=== PATIENT | male | born 1950 | race Caucasian/White ===

== ENCOUNTER 2016-11-12 09:55 | Observation (INO) | payer MEDICARE, MEDICAID ==
[2016-11-12] MEDS ORDERED: ONDANSETRON HCL/PF 2 MG/ML VIAL IV ONE (10:35)
[2016-11-12] MEDS ORDERED: KETOROLAC TROMETHAMINE 30 MG/ML VIAL IV ONE (10:40)
[2016-11-12] MEDS ORDERED: NORMAL SALINE 1,000 ML IV ONE ×2 (10:40→12:11)
--- NOTE | 2016-11-12 10:46 | ERNOTE ---
Abdominal HPI - Narrative Date of Service: 11/12/16 - General Chief Complaint: Abdominal Pain Time Seen by Provider: 11/12/16 10:35 Source: patient Exam Limitations: no limitations - Immun/Allergies/Home Medications Immunizatons: IMMUNIZATION HX Immunizations Up to Date Yes History of Influenza Vaccine No Hx Pneumococcal Vaccination Yes Allergies/Adverse Reactions: Allergies trazodone Adverse Reaction (Mild, Verified 05/02/16 11:14) Vomiting Home Medications: HOME MEDICATIONS Paroxetine HCl [Paxil] 40 mg PO DAILY 07/03/13 [Last Taken Unknown] Ascorbic Acid [Vitamin C] 250 mg PO DAILY 05/09/15 [Last Taken Unknown] Nitroglycerin 0.4 mg SL Q5MX3 PRN 05/09/15 [Last Taken Unknown] amLODIPine BESYLATE [Norvasc] 10 mg PO DAILY 05/09/15 [Last Taken Unknown] Carvedilol [Coreg] 12.5 mg PO BID #60 tablet 05/10/15 [Last Taken Unknown] Hydrochlorothiazide [Hydrodiuril] 25 mg PO DAILY@1100 #30 tablet 05/10/15 [Last Taken Unknown] ALPRAZolam [Xanax] 0.5 mg PO TID 02/14/16 [Last Taken Unknown] Aspirin [Aspirin Enteric Coated] 325 mg PO DAILY 02/14/16 [Last Taken Unknown] Fenofibrate [Lofibra] 160 mg PO DAILY 02/14/16 [Last Taken Unknown] Losartan Potassium [Cozaar] 100 mg PO DAILY 02/14/16 [Last Taken Unknown] Pantoprazole Sodium [Protonix] 20 mg PO DAILY 02/14/16 [Last Taken Unknown] Potassium Chloride [Klor-Con 10] 10 meq PO DAILY 02/14/16 [Last Taken Unknown] Ipratropium/Albuterol Sulfate [Combivent Respimat Inhal [place]] 1 puff IH QID [Last Taken Unknown] Lipase/Protease/Amylase [Gaurang Gómez 24,000 Units Capsule] 1 each PO TID 04/27/16 [ Last Taken Unknown] - History of Present Illness Narrative: Pt. comes in with c/o nausea and vomiting for four days without the ability to eat or drink. Pt. has not had a BM in over a week and has severe sharp upper abd pain four four days. Pt. denies any recent illness but does have chronic pancreatitis and a history of bowel obstruction. Pt. denies any prehospital treatment, alleviating factors or aggravating factors. Review of Systems - Review of Systems Constitutional: Present: weakness, fatigue, malaise, decreased activity level. Absent: recent illness, fever, chills, weight loss EYE: Present: no symptoms reported ENT: Present: no symptoms reported Respiratory: Present: no symptoms reported. Absent: shortness of breath, cough , wheezing Cardiology: Present: no symptoms reported. Absent: chest pain, palpitations, edema Gastrointestinal/Abdominal: Present: nausea, vomiting, constipation, abdominal pain, eating less, drinking less. Absent: diarrhea Genitourinary: Present: decreased urinary output. Absent: frequency, pain, dysuria Musculoskeletal: Present: no symptoms reported. Absent: back pain, joint pain Skin: Present: no symptoms reported Neurological: Present: no symptoms reported. Absent: headache, dizziness/light- headedness, weakness, numbness, tingling Endocrine: Present: no symptoms reported Hematologic/Lymphatic: Present: no symptoms reported All Other Systems: All systems neg except as marked - Patient's Past Medical History Patient History - Medical: Alcohol Abuse, Anxiety, Arthritis, Depression, GERD, Kidney stone, Osteoarthritis, Other - pancreatitis Patient History - Cardiac/Respiratory: Other - PAF, HTN, HLD, inferior wall [place] in 1993, non-STEMI in 2012; cardiac cath 08/15/2013-normal EF with 100% occlusion of the RCA with collaterals. Patient History - Cancer: No Hx of Cancer Patient History - Surgical Procedures: Colonoscopy, Other - Family History Mother Family History - Medical: Family History - Cardiac/Respiratory: Hypertension, Myocardial Infarction, Pneumonia Father Family History - Medical: , Anxiety Family History - Cardiac/Respiratory: Hypertension Brother Family History - Medical: Depression Sister Family History - Medical: Depression Family History - Cardiac/Respiratory: Coronary Heart Disease - Social History Living Situations: home Does anyone smoke in the home?: No Alcohol Use: sober Drug Use: none Physical Exam - Physical Exam General Appearance: Present: wd/wn, alert, no apparent distress Eye Exam: Normal inspection: bilateral, PERRL: bilateral, EOMI: bilateral Ears, Nose, Throat: Present: normal ENT inspection, hearing grossly normal, normal pharynx Neck: Present: normal inspection, nontender. Absent: lymphadenopathy (R), lymphadenopathy (L) Respiratory: Present: no respiratory distress, normal breath sounds, no accessory muscle use, chest nontender, lungs clear Cardiovascular/Chest: Present: regular rate, rhythm, no murmur, normal peripheral pulses Gastrointestinal/Abdominal: Present: no organomegaly, tenderness - BUQ, abnormal bowel sounds - hypo, distended, Simon sign. 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 and will admit pt. for acute on chronic pancreatitis and DKA. - Results and Orders Patient's Lab Results:: I have reviewed the patient's lab results. - Vital Signs Patient's Vital Signs:: I have reviewed the patient's vital signs. Vital Signs: Vital Signs 11/12/16 11/12/16 10:16 10:36 Temperature 37.0 C Pulse Rate 88 94 Respiratory 22 H 17 Rate Blood Pressure 176/102 O2 Sat by Pulse 96 95 Oximetry - EKG EKG: nonspecific ST T wave changes, LVH, other - Sinus Rhythm EKG read: Interp. by me - CT/Ultrasound CT/Ultrasound Narrative: CT with evidence of acute pancreatic changes in addition to chronic changes as well as AAA 5cm from previous 4.6 in april, - Progress/Reassessment Chief Complaint: Abdominal Pain Departure - Departure Clinical Impression: Acute on chronic pancreatitis DKA (diabetic ketoacidoses) Qualifiers: Diabetes mellitus type: type 2 Diabetes mellitus complication detail: without coma Qualified Code(s): E13.10 - Other specified diabetes mellitus with ketoacidosis without coma Disposition: [facility] Condition: Serious Referrals: Ryan Love MD [Primary Care Provider] -
[2016-11-12 10:56] LABS: Hematocrit 44.9 % (42.0-52.0); Hemoglobin 15.7 gm/dL (13.5-18.0); Mean Cell Volume 87.7 fl (78-100); Mean Corpuscular Hemoglobin 30.7 pg (27-31); Mean Platelet Volume 9.7 fl (6.0-9.5); Neutrophil # 8.3 K/mm3 (1.3-6.0); Neutrophil % 76.5 % (42-75.0); Platelet Count 223 K/mm3 (150-450); Red Blood Count 5.12 M/mm3 (4.7-6.0); Red Cell Distribution Width 12.3 % (11.5-14.0); White Blood Count 10.8 K/mm3 (4.0-10.5)
[2016-11-12] MEDS ORDERED: KETOROLAC TROMETHAMINE 30 MG/ML VIAL ONE (11:09)
[2016-11-12] MEDS ORDERED: ONDANSETRON HCL/PF 2 MG/ML VIAL ONE (11:09)
[2016-11-12 11:10] LABS: Albumin * 4.1 gm/dl (3.4-5.0); Anion Gap 18.1 mmol/L (6.8-13.8); BUN/Creatinine Ratio 13.3 (9.0-21.6); Bilirubin, Total 0.7 mg/dL (0.0-1.1); Ca. Corrected For Albumin 9.7 mg/dL (8.4-10.2); Calcium * 10.1 mg/dL (7.9-10.9); Carbon Dioxide 21.5 mmol/L (24-32.6); Potassium 3.6 mmol/L (3.4-4.6); Total Protein 8.1 gm/dL (6.2-8.2)
[2016-11-12] MEDS ORDERED: DIATRIZOATE MEGLU/DIATRIZO SOD 30 ML BTL PO ONE (11:52)
[2016-11-12] MEDS ORDERED: DIATRIZOATE MEGLU/DIATRIZO SOD 30 ML BTL ONE (11:54)
[2016-11-12] MEDS ORDERED: NORMAL SALINE 1,000 ML IV PRN (12:12)
[2016-11-12] MEDS ORDERED: INSULIN REGULAR HUMAN REC 100 UNITS in NORMAL SALINE 100 ML IV PRN (15:44)
[2016-11-12 16:49] LABS: Urine Appearance Clear; Urine Bacteria None Seen; Urine Bilirubin Negative (NEGATIVE); Urine Blood 10 /ul (NEGATIVE); Urine Color Yellow; Urine Ketone Negative (NEGATIVE); Urine Nitrite Negative (NEGATIVE); Urine Protein 15 mg/dL (NEGATIVE); Urine RBC None Seen /hpf (0-5); Urine Urobilinogen Normal (NORMAL); Urine WBC None Seen /hpf (0-5)
[2016-11-12] MEDS ORDERED: INSULIN LISPRO 100 UNITS/ML VIAL SC PRN (17:58)
[2016-11-12] MEDS: NORMAL SALINE 1,000 ML IV PRN (18:15)
--- NOTE | 2016-11-12 18:27 | HP ---
[id number] 18:17 Chief Complaint: nuasea/vomiting/abdominal pain History of Present Illness: Jeyson Chapman, is 66-year-old white male, with previous medical history of chronic pancreatitis, COPD, coronary artery disease, abdominal aortic aneurysm and iliac artery aneurysm who was admitted today for nausea/vomiting/abdominal pain. 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 4 days ago he started having nausea, vomiting associated with abdominal pain, sharp,diffuse, constant. He went to our emergency room today where he was found to have a slightly elevated lipase and a CT scan showing acute on chronic pancreatitis and a a 7 mm calcification near the head of the pancreas, consider obstruction of the periampullary region. His abdominal aortic aneurysm also has grown in size to 5. [address] scan did not show any bowel obstruction. He was then admitted for further evaluation and treatment. - Patient's Past Medical History Patient History - Medical: Alcohol Abuse, Anxiety, Arthritis, Depression, GERD, Kidney stone, Osteoarthritis, Other Patient History - Cardiac/Respiratory: Other - PAF, HTN, HLD, inferior wall [place] in 1993, non-STEMI in 2012; cardiac cath 08/15/2013-normal EF with 100% occlusion of the RCA with collaterals. Patient History - Cancer: No Hx of Cancer Patient History - Surgical Procedures: Colonoscopy, Other - Family History Mother Family History - Medical: Family History - Cardiac/Respiratory: Hypertension, Myocardial Infarction, Pneumonia Father Family History - Medical: , Anxiety Family History - Cardiac/Respiratory: Hypertension Brother Family History - Medical: Depression Family History - Cardiac/Respiratory: No pertinent hx Sister Family History - Medical: Depression Family History - Cardiac/Respiratory: Coronary Heart Disease - Social History Living Situations: alone Does anyone smoke in the home?: No Smoking Status: Current every day smoker Have you smoked in the past 12 months: Yes Do you dip or chew tobacco: No Patient requests Smoking Cessation Consult: No Initiate information on Smoking Cessation: No Alcohol Use: sober Drug Use: none Review Of Systems (GEN) - Review of Systems Generalized/Overall Review: Present: Weakness. Absent: Chills, Fever EENTM: Present: No Symptoms Reported Respiratory: Absent: Cough, Shortness of Breath, Orthopnea Cardiac: Absent: Chest Pain, Edema, Palpitations Abdominal: Present: Nausea, Abdominal Pain, Constipation Genitourinary: Absent: Urgency, Frequency Musculoskeletal: Present: Joint Pain Allergies/Adverse Reactions: Allergies Allergy/AdvReac Type Severity Reaction Status Date / Time trazodone AdvReac Mild Vomiting Verified 11/12/16 18:01 Home Medications: HOME MEDICATIONS Paroxetine HCl [Paxil] 40 mg PO DAILY 07/03/13 [Last Taken Unknown] Nitroglycerin 0.4 mg SL Q5MX3 PRN 05/09/15 [Last Taken Unknown] amLODIPine BESYLATE [Norvasc] 10 mg PO DAILY 05/09/15 [Last Taken Unknown] Carvedilol [Coreg] 12.5 mg PO BID #60 tablet 05/10/15 [Last Taken Unknown] Hydrochlorothiazide [Hydrodiuril] 25 mg PO DAILY@1100 #30 tablet 05/10/15 [Last Taken Unknown] ALPRAZolam [Xanax] 0.5 mg PO TID 02/14/16 [Last Taken Unknown] Aspirin [Aspirin Enteric Coated] 325 mg PO DAILY 02/14/16 [Last Taken Unknown] Fenofibrate [Lofibra] 160 mg PO DAILY 02/14/16 [Last Taken Unknown] Losartan Potassium [Cozaar] 100 mg PO DAILY 02/14/16 [Last Taken Unknown] Pantoprazole Sodium [Protonix] 20 mg PO DAILY 02/14/16 [Last Taken Unknown] Potassium Chloride [Klor-Con 10] 10 meq PO DAILY 02/14/16 [Last Taken Unknown] Ipratropium/Albuterol Sulfate [Combivent Respimat Inhal [place]] 1 puff IH QID [Last Taken Unknown] Lipase/Protease/Amylase [Gaurang Gómez 24,000 Units Capsule] 1 each PO TID 04/27/16 [ Last Taken Unknown] Exam - Exam Vital Signs: Vital Signs - Last Taken Temp 36.9 C 11/12/16 17:14 Pulse 83 11/12/16 17:47 Resp 18 11/12/16 17:14 BP 178/103 11/12/16 17:14 Pulse Ox 97 11/12/16 17:14 Constitutional: Present: Alert, Oriented x3, Cooperative, Obese ENT Exam: Present: hearing grossly normal Eye Exam: bilateral eye: normal inspection, PERRL, EOMI Neck: Present: supple Back Exam: Present: no CVA tenderness Breasts: Present: Exam deferred Respiratory: Present: decreased breath sounds, No rales, No wheezing Cardiovascular/Chest: Present: regular rate, rhythm, no JVD, no murmur Abdomen: Present: Normal bowel sounds, soft, tender - slightly , diffusely, distended - slightly Extremity: Present: no pedal edema, no calf tenderness Diagnostic Studies: Abnormal Lab Results 11/12/16 Range/Units 16:41 Urine Protein 15 H (NEGATIVE) mg/dL Urine Glucose (UA) 250 H (NEGATIVE) mg/dL Urine Blood 10 H (NEGATIVE) /ul Laboratory Results WBC 10.8 K/mm3 (4.0-10.5) H 11/12/16 10:48 RBC 5.12 M/mm3 (4.7-6.0) 11/12/16 10:48 Hgb 15.7 gm/dL (13.5-18.0) 11/12/16 10:48 Hct 44.9 % (42.0-52.0) 11/12/16 10:48 MCV 87.7 fl (78-100) 11/12/16 10:48 MCH 30.7 pg (27-31) 11/12/16 10:48 MCHC 35.0 g/dl (32-36) 11/12/16 10:48 RDW 12.3 % (11.5-14.0) 11/12/16 10:48 Plt Count 223 K/mm3 (150-450) 11/12/16 10:48 MPV 9.7 fl (6.0-9.5) H 11/12/16 10:48 Immature Gran % (Auto) 0.40 % (0.001-0.429) 11/12/16 10:48 Immature Gran # (Auto) 0.04 K/mm3 (0.000-0.0310) H 11/12/16 10:48 Neutrophils % 76.5 % (42-75.0) H 11/12/16 10:48 Lymphocytes % 14.4 % (20-51) L 11/12/16 10:48 Monocytes % 6.9 % (0.0-9) 11/12/16 10:48 Eosinophils % 1.4 % (0.0-3.0) 11/12/16 10:48 Basophils % 0.4 % (0.0-1.0) 11/12/16 10:48 Nucleated RBC % 0.0 k/mm3 (0-1) 11/12/16 10:48 Neutrophils # 8.3 K/mm3 (1.3-6.0) H 11/12/16 10:48 Lymphocytes # 1.6 k/mm3 (1.5-3.5) 11/12/16 10:48 Monocytes # 0.8 k/mm3 (0.0-1.0) 11/12/16 10:48 Eosinophils # 0.2 k/mm3 (0.0-0.7) 11/12/16 10:48 Absolute Basophils 0.0 k/mm3 (0.0-0.1) 11/12/16 10:48 VBG pH 7.326 (7.32-7.43) 11/12/16 12:28 Sodium 137 mmol/L (132-142) 11/12/16 10:48 Plasma Sodium 139 mmol/L (130-142) 11/12/16 10:48 Potassium 3.6 mmol/L (3.4-4.6) 11/12/16 10:48 Chloride 101 mmol/L (97-106) 11/12/16 10:48 Carbon Dioxide 21.5 mmol/L (24-32.6) L 11/12/16 10:48 Anion Gap 18.1 mmol/L (6.8-13.8) H 11/12/16 10:48 BUN 21 mg/dL (6-23) 11/12/16 10:48 Creatinine 1.58 mg/dL (0.4-1.4) H 11/12/16 10:48 Est GFR (Non-Af Amer) 47 mL/min (60-130) L 11/12/16 10:48 BUN/Creatinine Ratio 13.3 (9.0-21.6) 11/12/16 10:48 Random Glucose 245 mg/dL (70-110) H 11/12/16 10:48 Mean Blood Glucose 147 mg/dL 11/12/16 10:48 Hemoglobin A1c 7.0 % (4.00-6.0) H 11/12/16 10:48 Calcium 10.1 mg/dL (7.9-10.9) 11/12/16 10:48 Calcium Adj for Albumin 9.7 mg/dL (8.4-10.2) 11/12/16 10:48 Total Bilirubin 0.7 mg/dL (0.0-1.1) 11/12/16 10:48 AST 18 U/L (0-48) 11/12/16 10:48 ALT 33 U/L (19-67) 11/12/16 10:48 Alkaline Phosphatase 111 U/L (50-170) 11/12/16 10:48 Total Protein 8.1 gm/dL (6.2-8.2) 11/12/16 10:48 Albumin 4.1 gm/dl (3.4-5.0) 11/12/16 10:48 Amylase 44 U/L (25-115) 11/12/16 10:48 Lipase 610 U/L (73-393) H 11/12/16 10:48 Urine Color Yellow 11/12/16 16:41 Urine Appearance Clear 11/12/16 16:41 Urine pH 6.0 pH (5.0-7.0) 11/12/16 16:41 Ur Specific Tram 1.010 SP.GR. (1.005-1.030) 11/12/16 16:41 Urine Protein 15 mg/dL (NEGATIVE) H 11/12/16 16:41 Urine Glucose (UA) 250 mg/dL (NEGATIVE) H 11/12/16 16:41 Urine Ketones Negative mg/dL (NEGATIVE) 11/12/16 16:41 Urine Blood 10 /ul (NEGATIVE) H 11/12/16 16:41 Urine Nitrate Negative (NEGATIVE) 11/12/16 16:41 Urine Bilirubin Negative mg/dl (NEGATIVE) 11/12/16 16:41 Prot Sulfosalicylic Acd Negative mg/dL (0) 11/12/16 16:41 Urine Urobilinogen Normal EU/dl (NORMAL) 11/12/16 16:41 Ur Leukocyte Esterase Negative /ul (NEGATIVE) 11/12/16 16:41 Urine RBC None seen /hpf (0-5) 11/12/16 16:41 Urine WBC None seen /hpf (0-5) 11/12/16 16:41 Ur Epithelial Cells None seen /hpf (0-5) 11/12/16 16:41 Urine Bacteria None seen (NONE) 11/12/16 16:41 Urine Culture Comments No culture indicated 11/12/16 16:41 Serum Ketones Positive - 10mg/dl (NEGATIVE) H 11/12/16 10:48 Assessment/Plan - Assessment/Plan (1) Acute on chronic pancreatitis Assessment: slightly elevated lipase with CTS findings of acute on chronic pancreatitis. He does have a 7 mm calcification in the head of the pancreas. I did send him to [facility] in 06/2016 and they felt that his stones were not extractable and did not recommend ERCP. Will continue to keep patient NPO and continue with pain meds and IVF. His slight elevation of his WBC is likely due to the inflammation than infection. He may have ice chips. Problem: Acute (2) Diabetes mellitus type 2 in obese Assessment: new onset or due to present acute pancreatitis. Will keep him on accucheck with Humalog coverage. Problem: Acute (3) Coronary artery disease Problem: Acute Qualifiers: Coronary Disease-Associated Artery/Lesion type: iroquois artery [place] vs. transplanted heart: iroquois heart Associated angina: without angina Qualified Code(s): I25.10 - Atherosclerotic heart disease of iroquois coronary artery without angina pectoris (4) Aortic aneurysm Assessment: with recent increase in size. will refer to vascular surgery on outpatient basis. will control blood pressure, blood sugar and cholesterol. Problem: Chronic Qualifiers: Aortic location: abdominal aorta (5) GERD (gastroesophageal reflux disease) Assessment: on PPI. Problem: Chronic Qualifiers: Esophagitis presence: esophagitis presence not specified Qualified Code(s) : K21.9 - Gastro-esophageal reflux disease without esophagitis
[2016-11-12] MEDS ORDERED: HYDROmorphone HCL 1 MG/ML DISP.SYRIN IV PRN (18:47)
[2016-11-12] MEDS ORDERED: NITROGLYCERIN 0.4 MG/TAB BTL SL PRN (18:52)
[2016-11-12] MEDS: ALBUTEROL SULFATE/IPRATROPIUM 3 ML NEBU IH SCH (20:08)
[2016-11-12] MEDS: INSULIN LISPRO 100 UNITS/ML VIAL SC SCH (21:03)
[2016-11-12] MEDS ORDERED: CARVEDILOL 6.25 MG TABLET ONE (21:06)
[2016-11-12] MEDS: CARVEDILOL 12.5 MG TABLET PO SCH (21:08)
[2016-11-13] MEDS: NORMAL SALINE 1,000 ML IV PRN (02:20)
[2016-11-13] MEDS: INSULIN LISPRO 100 UNITS/ML VIAL SC SCH ×4 (02:24→20:33)
[2016-11-13 05:57] LABS: Hematocrit 40.4 % (42.0-52.0); Hemoglobin 13.5 gm/dL (13.5-18.0); Mean Cell Volume 90.8 fl (78-100); Mean Corpuscular Hemoglobin 30.3 pg (27-31); Mean Corpuscular Hgb Conc 33.4 g/dl (32-36); Mean Platelet Volume 10.1 fl (6.0-9.5); Neutrophil # 6.4 K/mm3 (1.3-6.0); Neutrophil % 67.2 % (42-75.0); Platelet Count 190 K/mm3 (150-450); Red Blood Count 4.45 M/mm3 (4.7-6.0); Red Cell Distribution Width 12.7 % (11.5-14.0); White Blood Count 9.6 K/mm3 (4.0-10.5)
[2016-11-13] MEDS: ALBUTEROL SULFATE/IPRATROPIUM 3 ML NEBU IH SCH ×4 (06:10→18:49)
[2016-11-13 06:20] LABS: Albumin * 3.4 gm/dl (3.4-5.0); BUN/Creatinine Ratio 13.4 (9.0-21.6); Bilirubin, Total 0.5 mg/dL (0.0-1.1); Ca. Corrected For Albumin 9.3 mg/dL (8.4-10.2); Calcium * 9.1 mg/dL (7.9-10.9); Carbon Dioxide 24.8 mmol/L (24-32.6); Chol/HDL Risk Ratio 5.5 mg/dL (3.3-5.0); Potassium 3.8 mmol/L (3.4-4.6); Total Protein 6.7 gm/dL (6.2-8.2)
[2016-11-13] MEDS: PANTOPRAZOLE SODIUM 20 MG TABLET.DR PO SCH (06:52)
--- NOTE | 2016-11-13 09:19 | PN ---
Subjective - Date and Time Seen Date: 11/13/16 Time: 09:06 Subjective Narrative: Patient seen today AOX3 no cute distress , he denies abdominal pain, no nausea, vomiting, fever or chills. Objective - Review of Systems Generalized/Overall Review: Reports: No Symptoms Reported EENTM: Reports: No Symptoms Reported Respiratory: Reports: No Symptoms Reported Cardiac: Reports: No Symptoms Reported Abdominal: Reports: No Symptoms Reported Genitourinary Symptoms: Reports: No Symptoms Reported Musculoskeletal Complaints: Reports: No Symptoms Reported Neurological: Reports: No Symptoms Reported Skin: Reports: No Symptoms Reported Endocrine: Reports: No Symptoms Reported - Vitals Vitals: Last Vital Signs Temp 36.6 C 11/13/16 07:24 Pulse 63 11/13/16 07:50 Resp 18 11/13/16 07:24 BP 155/91 11/13/16 07:24 Pulse Ox 96 11/13/16 07:24 - Abnormal Lab Findings Abnormal Lab Findings: Abnormal Lab Results 11/12/16 11/13/16 11/13/16 Range/Units 16:41 05:15 05:15 RBC 4.45 L (4.7-6.0) M/mm3 Hct 40.4 L (42.0-52.0) % MPV 10.1 H (6.0-9.5) fl Neutrophils # 6.4 H (1.3-6.0) K/mm3 Sodium 144 H (132-142) mmol/L Plasma Sodium 145 H (130-142) mmol/L Chloride 109 H (97-106) mmol/L Anion Gap 14.0 H (6.8-13.8) mmol/L Random Glucose 151 H D (70-110) mg/dL HDL Cholesterol 29 L (40-60) mg/dL Cholesterol/HDL Ratio 5.5 H (3.3-5.0) mg/dL Urine Protein 15 H (NEGATIVE) mg/dL Urine Glucose (UA) 250 H (NEGATIVE) mg/dL Urine Blood 10 H (NEGATIVE) /ul - Exam Constitutional: Present: Alert, Oriented x3, Cooperative, Well developed, Well nourished, No distress ENT Exam: Present: moist mucous membranes Neck: Present: full range of motion Breasts: Present: Exam deferred Respiratory: Present: chest non-tender, lungs clear, normal breath sounds, no respiratory distress Cardiovascular/Chest: Present: normal peripheral pulses, regular rate, rhythm, no chest tenderness, no edema Abdomen: Present: Normal bowel sounds, soft, nontender, nondistended, no rebound tenderness /Rectal: Present: Exam deferred Extremity: Present: normal range of motion, non-tender, normal inspection, no pedal edema, no calf tenderness Skin Exam: Present: normal color, warm/dry, no cyanosis Neurologic: Present: oriented x 3 Appearance: Present: appropriate appearance Eye contact: Present: cooperative, good eye contact Thoughts: Present: normal thought pattern Assessment/Plan Plan Narrative: Acute on chronic pancreatitis- Seen on CT abdomen CT Abdomen:pancreatic ductal dilation 7mm calcification seen in duct level of head of pancreas On adm Lipase 610------>271 WNL, pt denies abdominal discomfort and + flatus. plan for CLD and advanced as tolerated. he will follow up with GI service for potential ERCP upon discharge. GERD Resume home medications Diabetes This morning BG 131 continue with insulin as schedule Monitor BG AC+HS Code status : DNR VTE ppx: SCD while in bed and ambulate - Problems/Diagnosis (1) Acute on chronic pancreatitis Problem: Resolved (2) Diabetes mellitus type 2 in obese Problem: Chronic (3) GERD (gastroesophageal reflux disease) Problem: Chronic Qualifiers: Esophagitis presence: esophagitis presence not specified Qualified Code(s) : K21.9 - Gastro-esophageal reflux disease without esophagitis
[2016-11-13] MEDS: POTASSIUM CHLORIDE 10 MEQ TABLET.SA PO SCH (09:44)
[2016-11-13] MEDS: LOSARTAN POTASSIUM 50 MG TABLET PO SCH (09:44)
[2016-11-13] MEDS: ASPIRIN 325 MG TABLET.DR PO SCH (09:44)
[2016-11-13] MEDS: amLODIPine BESYLATE 10 MG TABLET PO SCH (09:45)
[2016-11-13] MEDS: PARoxetine HCL 20 MG TABLET PO SCH (09:45)
[2016-11-13] MEDS: CARVEDILOL 12.5 MG TABLET PO SCH ×2 (09:45→20:39)
[2016-11-13] MEDS: POTASSIUM CHLORIDE 10 MEQ in 0.5 NORMAL SALINE 1,000 ML IV SCH ×2 (13:24→20:57)
--- NOTE | 2016-11-13 15:52 | DS ---
(1) Acute on chronic pancreatitis Problem: Resolved (2) Diabetes mellitus type 2 in obese Problem: Chronic (3) GERD (gastroesophageal reflux disease) Problem: Chronic Qualifiers: Esophagitis presence: esophagitis presence not specified Qualified Code(s) : K21.9 - Gastro-esophageal reflux disease without esophagitis Description of Stay: Date of admission: 11/12/2016 Date of Discharge : 11/14/2016 Hospital Course: 66-year-old white male, with previous medical history of chronic pancreatitis, COPD, coronary artery disease, abdominal aortic aneurysm and iliac artery aneurysm who was admitted today for nausea/vomiting/abdominal pain. 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 4 days ago he started having nausea, vomiting associated with abdominal pain, sharp,diffuse, constant. He went to our emergency room today where he was found to have a slightly elevated lipase and a CT scan showing acute on chronic pancreatitis and a a 7 mm calcification near the head of the pancreas, consider obstruction of the periampullary region. His abdominal aortic aneurysm also has grown in size to 5. [address] scan did not show any bowel obstruction. During this adm his lipase is back to normal and LFT's WNL. He was seen by Dr. Somers June 2016 who didn't recommend ERCP at the time because it was inextractable and procedure might cause pancreatitis. It is possible that this is the same calcification that has moved to the head but now has passed out by itself as his lipase is back to normal w/o LFT abnormalities and clinically patient is no longer with pain /N/V. He denies abdominal pain and tolerating meal. He remain medically stable for Dc home today and follow up with Dr. Somers and pcp 3-7 days for diabetes management A1C 7.0. on this adm and fasting glucose in the 130's- 140's. Will initiate Metformin 500 mg BID and pt to have repeated fasting glucose with PCP 1-2 weeks Procedures Performed: none Results and Findings: Laboratory Tests 11/12/16 11/12/16 11/13/16 10:48 10:48 05:15 Sodium 137 144 H Potassium 3.6 3.8 BUN 21 17 Creatinine 1.58 H 1.27 Hemoglobin A1c 7.0 H Amylase 44 Lipase 610 H 271 Discharge Disposition: Home self care Disposition: Home self-care Condition: Stable Discharge Activity: Activity as tolerated Discharge Diet: Consistent carbs Referrals: Ryan Love MD [Primary Care Provider] - Additional Patient Instructions (free text): Make appt with GI service Dr Somers in [place] in 1-2 week. Make appt with PCP 1-2 weeks for diabetes management Prescriptions (Any new or edited meds): Alcohol Antiseptic Pads [Alcohol Wipes] 1 each TP BID #120 med..pad Blood Sugar Diagnostic [Glucose Test Strip] 1 each MC BID #120 strip Metformin HCl [Glumetza] 500 mg PO BID #60 [id number] Complete Home Medications List: Complete Home Medication List: Paroxetine HCl [Paxil] 40 mg PO DAILY 07/03/13 Nitroglycerin 0.4 mg SL Q5MX3 PRN 05/09/15 amLODIPine BESYLATE [Norvasc] 10 mg PO DAILY 05/09/15 Carvedilol [Coreg] 12.5 mg PO BID #60 tablet 05/10/15 Hydrochlorothiazide [Hydrodiuril] 25 mg PO DAILY@1100 #30 tablet 05/10/15 ALPRAZolam [Xanax] 0.5 mg PO TID 02/14/16 Aspirin [Aspirin Enteric Coated] 325 mg PO DAILY 02/14/16 Fenofibrate [Lofibra] 160 mg PO DAILY 02/14/16 Losartan Potassium [Cozaar] 100 mg PO DAILY 02/14/16 Pantoprazole Sodium [Protonix] 20 mg PO DAILY 02/14/16 Potassium Chloride [Klor-Con 10] 10 meq PO DAILY 02/14/16 Ipratropium/Albuterol Sulfate [Combivent Respimat Inhal [place]] 1 puff IH QID Lipase/Protease/Amylase [Gaurang Gómez 24,000 Units Capsule] 1 each PO TID 04/27/16 Alcohol Antiseptic Pads [Alcohol Wipes] 1 each TP BID #120 med..pad 11/14/16 Blood Sugar Diagnostic [Glucose Test Strip] 1 each MC BID #120 strip 11/14/16 Metformin HCl [Glumetza] 500 mg PO BID #60 [id number] 11/14/16 Amb Orders for Discharge: Basic Metabolic Panel Time Frame: 1 Week, Location: Determined By Patient HGBA1C Time Frame: 3 Months, Location: Determined By Patient
[2016-11-14] MEDS: INSULIN LISPRO 100 UNITS/ML VIAL SC SCH ×2 (02:51→08:37)
[2016-11-14] MEDS: POTASSIUM CHLORIDE 10 MEQ in 0.5 NORMAL SALINE 1,000 ML IV SCH (04:38)
[2016-11-14] MEDS: ALBUTEROL SULFATE/IPRATROPIUM 3 ML NEBU IH SCH ×2 (06:00→10:40)
[2016-11-14] MEDS: PANTOPRAZOLE SODIUM 20 MG TABLET.DR PO SCH (07:02)
[2016-11-14 07:44] LABS: Albumin * 3.7 gm/dl (3.4-5.0); Anion Gap 14.5 mmol/L (6.8-13.8); BUN/Creatinine Ratio 11.6 (9.0-21.6); Bilirubin, Total 0.7 mg/dL (0.0-1.1); Ca. Corrected For Albumin 9.4 mg/dL (8.4-10.2); Calcium * 9.5 mg/dL (7.9-10.9); Carbon Dioxide 22.4 mmol/L (24-32.6); Potassium 3.9 mmol/L (3.4-4.6); Total Protein 7.2 gm/dL (6.2-8.2)
[2016-11-14] MEDS: CARVEDILOL 12.5 MG TABLET PO SCH (08:33)
[2016-11-14] MEDS: ASPIRIN 325 MG TABLET.DR PO SCH (08:33)
[2016-11-14] MEDS: POTASSIUM CHLORIDE 10 MEQ TABLET.SA PO SCH (08:33)
[2016-11-14] MEDS: amLODIPine BESYLATE 10 MG TABLET PO SCH (08:33)
[2016-11-14] MEDS: LOSARTAN POTASSIUM 50 MG TABLET PO SCH (08:33)
[2016-11-14] MEDS: PARoxetine HCL 20 MG TABLET PO SCH (08:34)
[2016-11-14 11:17] VITALS: BP 138/79
--- NOTE | 2016-11-15 09:40 | PN ---
Progess Note - Interim Narrative: l Late entry 11/13/16 09:36 progress Note pt was seen in room he denies abdominal discomfort, nausea and vomiting. he was started on CLD with plans for discharge home when he tolerated advanced diet. ROS x10 no symptoms reported and remain medically stable for discharge later today. EXAM Constitutional: Present: Alert, Oriented x3, Cooperative, Well developed, Well nourished, No distress ENT Exam: Present: moist mucous membranes Neck: Present: full range of motion Breasts: Present: Exam deferred Respiratory: Present: chest non-tender, lungs clear, normal breath sounds, no respiratory distress Cardiovascular/Chest: Present: normal peripheral pulses, regular rate, rhythm, no chest tenderness, no edema Abdomen: Present: Normal bowel sounds, soft, nontender, nondistended, no rebound tenderness /Rectal: Present: Exam deferred Extremity: Present: normal range of motion, non-tender, normal inspection, no pedal edema, no calf tenderness Skin Exam: Present: normal color, warm/dry, no cyanosis Neurologic: Present: oriented x 3 Appearance: Present: appropriate appearance Eye contact: Present: cooperative, good eye contact Thoughts: Present: normal thought pattern Acute on chronic pancreatitis- resolved Amylase, lipase and liver enzymes remain WNL Pt to follow up with Dr. herrera in [place] upon discharge Code status DNR VTE ppx SCD and ambulate
== END 2016-11-14 12:50 | disposition home or self-care (01) ==
LOC: ER 09:55 → MS 16:04 → INTOOBSV 16:04
PROVIDERS: ADMIT Internal Medicine; ATTEND Internal Medicine
DX: K85.90 Acute pancreatitis without necrosis or infection, unspecified (principal); K86.1 Other chronic pancreatitis; E11.9 Type 2 diabetes mellitus without complications; K21.9 Gastro-esophageal reflux disease without esophagitis; I71.4 Abdominal aortic aneurysm, without rupture; I10 Essential (primary) hypertension; E78.5 Hyperlipidemia, unspecified; I25.2 Old myocardial infarction; M19.90 Unspecified osteoarthritis, unspecified site; F41.8 Other specified anxiety disorders; Z82.49 Family history of ischemic heart disease and other diseases of the circulatory system; F17.200 Nicotine dependence, unspecified, uncomplicated; Z87.442 Personal history of urinary calculi
CPT/HCPCS: 36415; 74177; 80053; 80061; 81001; 82009; 82150; 82800; 83036; 83690; 85025; 93005; 94640; 96374; 99284; G0378

== ENCOUNTER 2017-08-12 10:35 | Day surgery (SDC) | payer MEDICAID, MEDICARE ==
[~2017-08-12 10:35] MED LIST: RINGER'S SOLUTION,LACTATED 1,000 ML IV PRN
[2017-08-12] MEDS ORDERED: RINGER'S SOLUTION,LACTATED 1,000 ML IV PRN (13:13)
[2017-08-12 14:08] VITALS: BP 163/74
--- NOTE | 2017-08-13 15:52 | OR ---
Operative Report - Dictated Report Narrative: OPERATIVE REPORT DATE OF OPERATION: 08/12/2017 PREOPERATIVE DIAGNOSIS: No recent dedicated colon studies. Constipation POSTOPERATIVE DIAGNOSIS: Normal colonoscopy OPERATION: Colonoscopy SURGEON: Gopal Griffin MD ANESTHESIA: ANASTASIA Campbell CRNA INDICATIONS FOR PROCEDURE: The patient is a 67-year-old male referred by Dr. Love. He had a normal colonoscopy in 2006. There is no family history of colon cancer. He moves his bowels twice a week FINDINGS: Very capacious colon, fair prep, otherwise normal exam to the cecum NARRATIVE OF PROCEDURE: The patient was identified in the holding area, and prior to the administration of anesthetic, a multidisciplinary timeout was observed. With the patient in the left lateral position and after the administration of intravenous sedation, the perineum was inspected. There was no evidence of pilonidal disease or skin breakdown. The external appearance of the anus was normal. Sphincter tone was good. The flexible fiberoptic colonoscope was inserted into the rectum which was insufflated with air. The rectal mucosa and submucosal vascular pattern appeared normal, the prep was seen to be fair with some residual particulate and liquid stool however satisfactory for diagnostic exam. The scope was advanced through the sigmoid colon, up the descending colon, and around the splenic flexure where the triangular haustral architecture of the transverse colon was seen. The scope was advanced across the transverse colon, around the hepatic flexure to the cecum, where the confluence of tenia and the ileocecal valve were identified. The mucosa at this level appeared normal. The scope was then slowly withdrawn in a circular fashion so that all aspects of colonic mucosa were inspected. The colon was very capacious and redundant in character requiring external manual compression and standard reduction maneuvers to reach the cecum. The haustral architecture appeared well preserved throughout with no evidence of external compression. The mucosa and submucosal vascular pattern appeared normal, specifically there was no gross evidence to suggest colitis or inflammatory bowel disease and no AV malformations were seen. No samantha diverticulosis was demonstrated. No polyps were encountered. The scope was gradually withdrawn to the level of the rectum. As much insufflated air as possible was removed. The scope was withdrawn from the patient and the procedure terminated. The patient tolerated the anesthetic and procedure well without complication and was transferred back to the ambulatory surgery area awake and in stable condition. The patient remained stable throughout a period of postoperative observation. He denied abdominal discomfort, was able to tolerate by mouth intake, and was up without assistance. I shared the operative findings with the patient and he was given copies of the photographs which appear in the medical record. He was discharged home with instructions not to engage in hazardous activity today, but may resume normal activity tomorrow, and advance diet as tolerated. He is to continue those medications as listed in the history and physical exam. RECOMMENDATION: Colon surveillance in 10 years depending upon findings and symptoms Reviewed and electronically signed
== END 2017-08-12 10:36 | disposition home or self-care (01) ==
LOC: AMB 10:35
PROVIDERS: ATTEND Surgery
PROC: 0DJD8ZZ Inspection of Lower Intestinal Tract, Via Natural or Artificial Opening Endoscopic (ICD-10-PCS; principal; 2017-08-12 13:00)
DX: Z12.11 Encounter for screening for malignant neoplasm of colon (principal); K59.00 Constipation, unspecified; I12.9 Hypertensive chronic kidney disease with stage 1 through stage 4 chronic kidney disease, or unspecified chronic kidney disease; E11.22 Type 2 diabetes mellitus with diabetic chronic kidney disease; N18.9 Chronic kidney disease, unspecified; E78.5 Hyperlipidemia, unspecified; I25.10 Atherosclerotic heart disease of native coronary artery without angina pectoris; I48.91 Unspecified atrial fibrillation; J44.9 Chronic obstructive pulmonary disease, unspecified; K21.9 Gastro-esophageal reflux disease without esophagitis; F41.8 Other specified anxiety disorders; F17.200 Nicotine dependence, unspecified, uncomplicated; Z68.31 Body mass index [BMI] 31.0-31.9, adult

== ENCOUNTER 2017-10-07 10:45 | Emergency (ER) | payer MEDICARE ==
--- NOTE | 2017-10-07 11:11 | ERNOTE ---
Medical Problem HPI - Narrative Date of Service: 10/07/17 - General Chief Complaint: General Assessment Time Seen by Provider: 10/07/17 10:55 Source: patient Exam Limitations: no limitations - Immun/Allergies/Home Medications Immunizations: IMMUNIZATION HX Immunizations Up to Date Yes History of Influenza Vaccine No Hx Pneumococcal Vaccination Yes Allergies/Adverse Reactions: Allergies trazodone Adverse Reaction (Mild, Verified 10/07/17 10:51) NAUSEA, IRRITABLE Home Medications: HOME MEDICATIONS PARoxetine HCL [Paxil] 40 mg PO DAILY 07/03/13 [Last Taken Unknown] Nitroglycerin 0.4 mg SL [id number] PRN 05/09/15 [Last Taken Unknown] amLODIPine BESYLATE [Norvasc] 10 mg PO DAILY 05/09/15 [Last Taken Unknown] Carvedilol [Coreg] 12.5 mg PO BID #60 tablet 05/10/15 [Last Taken Unknown] Hydrochlorothiazide [Hydrodiuril] 25 mg PO DAILY@1100 #30 tablet 05/10/15 [Last Taken Unknown] ALPRAZolam [Xanax] 0.5 mg PO TID 02/14/16 [Last Taken Unknown] Aspirin [Aspirin Enteric Coated] 325 mg PO DAILY 02/14/16 [Last Taken Unknown] Fenofibrate [Lofibra] 160 mg PO DAILY 02/14/16 [Last Taken Unknown] Losartan Potassium [Cozaar] 100 mg PO DAILY 02/14/16 [Last Taken Unknown] Potassium Chloride [Klor-Con 10] 10 meq PO DAILY 02/14/16 [Last Taken Unknown] Ipratropium/Albuterol Sulfate [Combivent Respimat Inhal [place]] 1 puff IH QID [Last Taken Unknown] Lipase/Protease/Amylase [Gaurang Gómez 24,000 Units Capsule] 1 each PO TID 04/27/16 [ Last Taken Unknown] Ascorbic Acid [Vitamin C] 250 mg PO DAILY 08/02/17 [Last Taken Unknown] Blood Sugar Diagnostic [Glucose Test Strip] 1 each MC QID 08/02/17 [Last Taken Unknown] Pantoprazole Sodium [Protonix] 20 mg PO DAILY 08/02/17 [Last Taken Unknown] QUEtiapine FUMARATE [Seroquel] 100 mg PO HS 08/02/17 [Last Taken Unknown] traMADol HCL [Ultram] 50 mg PO Q6H PRN 08/02/17 [Last Taken Unknown] Levofloxacin [Levaquin] 750 mg PO DAILY #10 tab 10/07/17 [Last Taken Unknown] metroNIDAZOLE [Flagyl] 500 mg PO Q12H #20 tab 10/07/17 [Last Taken Unknown] - History of Present History Narrative: Pt. comes in with c/o generalized abdominal pain that radiates to proximal BLE. Pt. denies any SOB but does statea that he has had intermittent chest pain and nausea and vomiting for 2 days. Pt. has a hx of intermittent claudication and an AAA and has been taking Ibuprofen for the pain with some relief. Pt. states that his blood sugars have been in the 140s-150s since onset of symptoms. Timing: getting worse Severity: moderate Modifying Factors - (Improves): Present: other - ibuprofen Modifying Factors - (Worsens): Present: eating, medication Review of Systems - Review of Systems Constitutional: Present: weakness, fatigue, malaise. Absent: fever, chills EYE: Present: no symptoms reported ENT: Present: no symptoms reported Respiratory: Present: no symptoms reported. Absent: shortness of breath, cough , wheezing Cardiology: Present: chest pain. Absent: palpitations, edema Gastrointestinal/Abdominal: Present: nausea, vomiting, abdominal pain, eating less, drinking less. Absent: diarrhea, constipation Genitourinary: Present: no symptoms reported. Absent: frequency, decreased urinary output Musculoskeletal: Present: no symptoms reported. Absent: back pain, joint pain Skin: Present: no symptoms reported. Absent: rash, dryness, lesions, lumps, change in color Neurological: Present: no symptoms reported. Absent: headache, dizziness/light- headedness, numbness, tingling All Other Systems: All systems neg except as marked - Patient's Past Medical History Patient History - Medical: Alcohol Abuse, Anxiety, Arthritis, Depression, GERD, Kidney stone, Osteoarthritis, Other - pancreatitis Patient History - Cardiac/Respiratory: Atrial Fibrillation, Aneurysm, Coronary Heart Disease, CHF, Hypertension, Other Patient History - Cancer: No Hx of Cancer Patient History - Surgical Procedures: Colonoscopy, Other Patient History - Other: None - Family History Mother Family History - Medical: , Other Family History - Cardiac/Respiratory: Hypertension, Myocardial Infarction, Pneumonia, Other Family History - Cancer: No pertinent family hx Father Family History - Medical: , Anxiety, Other Family History - Cardiac/Respiratory: Hypertension Family History - Cancer: No pertinent family hx Brother Family History - Medical: Depression, Other Family History - Cardiac/Respiratory: No pertinent hx Family History - Cancer: No pertinent family hx Sister Family History - Medical: Depression Family History - Cardiac/Respiratory: Coronary Heart Disease Family History - Cancer: Breast - Social History Living Situations: home Abuse History: No History of abuse Psych History: Hx of Anxiety, Hx of Depression, Current tx/ever been on anti- depressants or anti-anxiety meds - Immunizations Immunizations Up to Date: Yes Hx Pneumococcal Vaccination: Yes History of Influenza Vaccine: No Physical Exam - Physical Exam General Appearance: Present: wd/wn, alert, no apparent distress Head Exam: Present: normal inspection, no evidence of injury Eye Exam: Normal inspection: bilateral Ears, Nose, Throat: Present: normal ENT inspection, normal pharynx. Absent: abnormal TM (R), abnormal TM (L) Neck: Present: normal inspection, nontender, supple, full range of motion. Absent: lymphadenopathy (R), lymphadenopathy (L) Respiratory: Present: no respiratory distress, normal breath sounds, no accessory muscle use, chest nontender, lungs clear Cardiovascular/Chest: Present: regular rate, rhythm, no murmur, normal peripheral pulses Gastrointestinal/Abdominal: Present: normal bowel sounds, tenderness - RUQ, distended, hepatomegaly Back Exam: Present: normal inspection, normal range of motion, no CVA tenderness , no vertebral tenderness Extremity Exam: Present: normal inspection, non-tender, normal range of motion, no edema Neurological Exam: Present: alert, oriented, normal mood/affect, no motor/ sensory deficits, ring stamper II-XII nml as tested, normal cerebellar test Skin Exam: Present: warm/dry, pallor ED Progress - Date and Time Seen: Date and Time: 10/07/17 14:30 Pt. does not want gallbladder evaluated at this time and states that he will return to the ER if he develops fevers or get worse, but states taht he is feeling better right now and would like to follow up outpatient to evaluate gallbladder. Will start pt. consevatively on Levaquin and flagyl per Up to Date recommendations. 10/07/17 14:40 - Results and Orders Patient's Lab Results:: I have reviewed the patient's lab results. - Vital Signs Patient's Vital Signs:: I have reviewed the patient's vital signs. Vital Signs: Vital Signs 10/07/17 10:46 Temperature 36.4 C L Pulse Rate 63 Respiratory 12 Rate Blood Pressure 148/79 O2 Sat by Pulse 99 Oximetry - EKG EKG: nonspecific ST T wave changes, other - SR EKG read: Reviewed by me EKG Comments: Interp by Dr Love - Progress/Reassessment Chief Complaint: General Assessment Progress:: Unchanged Departure Clinical Impression: Cholecystitis, acute Aortic aneurysm Qualifiers: Aortic location: abdominal aorta Presence of rupture: without rupture Qualified Code(s): I71.4 - Abdominal aortic aneurysm, without rupture GERD (gastroesophageal reflux disease) Qualifiers: Esophagitis presence: with esophagitis Qualified Code(s): K21.0 - Gastro- esophageal reflux disease with esophagitis - Departure Disposition: Home self-care Condition: Good Instructions: Gastroesophageal Reflux Disease, Pediatric, Cholecystitis, Easy- to-Read Additional Instructions: Please follow up with primary provider in 2-3 days. Please stop Ibuprofen and increase fluid intake and continue protonix. Referrals: Ryan Love MD [Primary Care Provider] - Prescriptions: Levofloxacin [Levaquin] 750 mg PO DAILY #10 tab metroNIDAZOLE [Flagyl] 500 mg PO Q12H #20 tab
[2017-10-07 11:16] LABS: Hematocrit 43.2 % (42.0-52.0); Hemoglobin 15.1 gm/dL (13.5-18.0); Mean Cell Volume 88.5 fl (78-100); Mean Corpuscular Hemoglobin 30.9 pg (27-31); Mean Platelet Volume 9.8 fl (6.0-9.5); Neutrophil # 4.5 K/mm3 (1.3-6.0); Neutrophil % 63.3 % (42-75.0); Platelet Count 175 K/mm3 (150-450); Red Blood Count 4.88 M/mm3 (4.7-6.0); White Blood Count 7.1 K/mm3 (4.0-10.5)
[2017-10-07 11:38] LABS: ALT 23 U/L (19-67); AST 20 U/L (0-48); Albumin * 3.9 gm/dl (3.4-5.0); Alkaline Phosphatase * 95 U/L (50-170); Amylase * 26 U/L (25-115); Anion Gap 15.6 mmol/L (6.8-13.8); BUN/Creatinine Ratio 13.5 (9.0-21.6); Bilirubin, Total 0.8 mg/dL (0.0-1.1); Blood Urea Nitrogen 23 mg/dL (6-23); Ca. Corrected For Albumin 8.7 mg/dL (8.4-10.2); Calcium * 8.9 mg/dL (7.9-10.9); Chloride 100 mmol/L (97-106); Glucose * 112 mg/dL (70-110); Lipase 56 U/L (73-393); Potassium 3.6 mmol/L (3.4-4.6); Sodium 136 mmol/L (132-142); Total Protein 7.7 gm/dL (6.2-8.2); Troponin I Less than 0.017 ng/ml (0.00-0.10)
[2017-10-07] MEDS ORDERED: NORMAL SALINE 1,000 ML IV ONE (11:43)
[2017-10-07 12:51] LABS: Urine Bilirubin Negative (NEGATIVE); Urine Blood Negative /ul (NEGATIVE); Urine Ketone 5 mg/dL (NEGATIVE); Urine Nitrite Negative (NEGATIVE); Urine Protein 100 mg/dL (NEGATIVE); Urine Specific Gravity 1.025 SP.GR. (1.005-1.030); Urine Urobilinogen Normal (NORMAL); Urine pH 5.5 pH (5.0-7.0)
[2017-10-07 13:17] LABS: Urine Appearance Slightly Cloudy; Urine Bacteria TRACE; Urine Color Yellow; Urine RBC None Seen /hpf (0-5); Urine Sperm TRACE; Urine WBC TRACE /hpf (0-5)
[2017-10-07 14:22] VITALS: BP 138/78
== END 2017-10-07 14:49 | disposition home or self-care (01) ==
LOC: ER 10:45
DX: K81.9 Cholecystitis, unspecified (principal); I71.4 Abdominal aortic aneurysm, without rupture; K21.0 Gastro-esophageal reflux disease with esophagitis; Z87.442 Personal history of urinary calculi; I10 Essential (primary) hypertension; F32.9 Major depressive disorder, single episode, unspecified; I50.9 Heart failure, unspecified; F41.9 Anxiety disorder, unspecified